=== PATIENT | female | born 1995 | race Caucasian/White ===

== ENCOUNTER 2018-11-04 22:50 | Emergency (ER) | payer OTHER ==
[~2018-11-04] VITALS: Ht 154.9 cm; Wt 82.8 kg
[2018-11-04 23:02] VITALS: Ht 154.9 cm; Wt 82.8 kg
--- NOTE | 2018-11-05 01:10 | ERD ---
ER Documentation Chief Complaint Chief Complaint CWP WITH COUGH ON/OFF [id number]; HX OF ARRHYTHMIA HPI 23-year-old female presents due to chest chest pain earlier today. States the patient has a history of chest pain for which she saw her primary care physician and her physician told her that she had a possible arrhythmia. States that she is currently waiting to see a insurance claims specialist but has no appointment set yet. In addition, she states she has history of anxiety for which she takes medications sporadically and states that her hands have been a little bit shakier lately than normal. She denies ever having had thyroid labs done. denies any treatments. Denies any current chest pain. Does state that she has been having some URI symptoms. Denies any diaphoresis, lightheadedness, syncope, nausea, radiation of pain to arms, shortness of breath, pain upon exertion, dyspnea, swelling of calves, history of clotting, history of surgeries, history of immobility, hemoptysis. ROS All systems reviewed and are negative except as per history of present illness. Medications Home Meds Active Scripts Ibuprofen* (Motrin*) 400 Mg Tab, 400 MG PO Q6 for pain, #30 TAB Prov:PERRY SERRA 11/05/18 Allergies Allergies: Coded Allergies: No Known Drug Allergies (Verified Allergy, Unknown, 11/05/18) PMhx/Soc Medical and Surgical Hx: pt denies Medical Hx, pt denies Surgical Hx Hx Alcohol Use: No Hx Substance Use: No Hx Tobacco Use: No Smoking Status: Never smoker FmHx Family History: No diabetes, No coronary disease, No other Physical Exam Vitals Vital Signs Date Temp Pulse Resp B/P (MAP) Pulse Ox O2 O2 Flow FiO2 Time Delivery Rate 11/04/18 99.3 92 19 151/91 97 23:02 (111) Physical Exam Const: No acute distress Head: Atraumatic Eyes: Normal Conjunctiva ENT: Normal External Ears, Nose and Mouth. Neck: Full range of motion. No meningismus. Resp: Clear to auscultation bilaterally Cardio: Regular rate and rhythm, no murmurs. Tenderness palpation over the anterior chest wall bilaterally. Abd: Soft, non tender, non distended. Normal bowel sounds Skin: No petechiae or rashes Back: No midline or flank tenderness Ext: No cyanosis, or edema. No erythema or tender to palpation over the lower extremities bilaterally. Neur: Awake and alert Psych: Normal Mood and Affect Results 24 hrs Laboratory Tests Test 11/05/18 01:02 11/05/18 01:16 Bedside Urine pH (LAB) 7.5 Bedside Urine Protein (LAB) 2+ Bedside Urine Glucose (UA) Negative Bedside Urine Ketones (LAB) Negative Bedside Urine Blood 3+ Bedside Urine Nitrite (LAB) Negative Bedside Urine Leukocyte Esterase (L 1+ Troponin I < 0.012 ng/ml Thyroid Stimulating Hormone (TSH) 4.690 MIU/L POC Beta HCG, Qualitative NEGATIVE Procedures/MDM DIAGNOSTIC IMAGING REPORT Patient: JAIDA LOPEZ : 1995 Age: 23 Sex: F MR #: [id number] DOS: 11/05/18 0053 Ordering MD: PERRY SERRA [facility]: [facility] Room/Bed: PROCEDURE: One view chest radiograph. CLINICAL INDICATION: Chest pain. TECHNIQUE: An AP view of the chest was obtained. COMPARISON: None. FINDINGS: Mediastinum: Unremarkable. Heart size: Normal. Pulmonary vasculature: No visible engorgement. Lungs: Clear. Costophrenic sulci: Clear. Bony structures: Grossly unremarkable for age. IMPRESSION: 1. Unremarkable single view chest. RPTAT:AAJJ Physician Maria R Date Time Electronically viewed and signed by Physician Maria R on 11/05/2018 02:05 GW/ CC: PERRY SERRA [id number] EKG: Rate/Rhythm: Normal Sinus Rhythm QRS, ST, T-waves: No changes consistent w/ acute ischemia Impression: No evidence of ischemia or arrhythmia Chest x-ray, EKG, troponin were ordered. All results within normal limits. There is 1+ leukocytes seen on the urinalysis however patient denies any dysuria hematuria or flank pain therefore there is low suspicion for UTI. In addition there are no nitrites. Patient's TSH was mildly elevated so I advised patient to get thyroid panel done by her primary care provider. Patient's presentation is consistent with costochondritis. I have low suspicion for acute coronary syndrome, pulmonary embolism, aortic dissection, AAA, pneumothorax, esophageal rupture, pericarditis, myocarditis, or pneumonia based on EKG, imaging, labs, patient history and exam. Given patient's self-reported history of arrhythmia, I advised patient that she really needs to see a insurance claims specialist as soon as possible to rule out any life-threatening conditions. Patient understood and agreed to follow-up. Patient discharged with strict ER precautions. Patient advised to follow up with PMD. All questions answered at discharge. Departure Diagnosis: Primary Impression: Chest pain Chest pain type: unspecified Qualified Codes: R07.9 - Chest pain, unspecified Additional Impression: Elevated TSH Condition: Stable PERRY SERRA Nov 05, 2018 01:10
[2018-11-05] MEDS ORDERED: IBUP-1561 PO (01:11)
[2018-11-05 02:34] VITALS: BP 127/72; PULSE 64; RESP 18
== END 2018-11-05 02:35 | disposition home or self-care (01) ==
LOC: FTE 22:50
DX: R07.89 Other chest pain (principal); R94.6 Abnormal results of thyroid function studies
CPT/HCPCS: 36415; 71045; 81003; 81025; 84443; 84484; 93005